=== PATIENT | male | born 1950 | race Caucasian/White ===

== ENCOUNTER → 2017-08-17 10:02 | Outpatient (CLI) | payer MEDICARE, MEDICAID, SELFPAY ==
[2017-08-17 10:47] LABS: Hematocrit 41.3 % (41-53); Hemoglobin 13.4 g/dL (13.5-17.5); Mean Corpuscular HGB Conc 32.5 % (30-36); Mean Corpuscular Hemoglobin 30.1 PG (26-34); Mean Corpuscular Volume 92.7 fL (80-100); Platelet Count 243 X10^3/uL (150-400); Red Blood Cell Count 4.46 X10^6/uL (4.5-5.9); Red Cell Distribution Width 13.6 % (11.6-14.8)
[2017-08-17 10:59] LABS: Add Manual Diff / Slide Review YES; White Blood Cell Count 204.3 X10^3/uL (4.5-11.0)
[2017-08-17 11:00] LABS: Alanine Aminotransferase 23 IU/L (21-72); Albumin 4.1 g/dL (3.5-5.0); Albumin Globulin Ratio 1.5 (1.0-2.8); Alkaline Phosphatase 74 U/L (38-126); Aspartate Aminotransferase 15 IU/L (17-59); BUN Creatinine Ratio 18.9 (6-22); Bilirubin Total 0.6 mg/dL (0.2-1.3); Blood Urea Nitrogen 17 mg/dL (9-20); Calcium 9.5 mg/dL (8.4-10.2); Carbon Dioxide 28 mmol/L (22-32); Chloride 103 mmol/L (98-107); Estimated Glomerular Filt Rate > 60.0 mL/min (>60); Globulin 2.8 g/dL (1.7-4.1); Glucose 103 mg/dL (80-110); HEMOLYSIS < 15 (0-50); Potassium 4.1 mmol/L (3.4-5.1); Sodium 143 mmol/L (137-145); Total Protein 6.9 g/dL (6.3-8.2); Uric Acid 4.2 mg/dL (3.5-8.5)
[2017-08-17 11:10] LABS: Neutrophils Absolute Manual 4086 /uL (3000-5900); RBC Morphology Normal Morphology; Smudge Cells 2+; Total Cells Counted 100
== END ==
PROVIDERS: PCP Internal Medicine; Visit Provider Internal Medicine Hematology & Oncology
DX: C91.10 Chronic lymphocytic leukemia of B-cell type not having achieved remission (principal)
CPT/HCPCS: 36415; 80053; 84550; 85025

== ENCOUNTER 2017-08-25 15:39 | Inpatient (IN) | payer MEDICARE, MEDICAID, SELFPAY ==
[2017-08-25 15:49] VITALS: TEMP 37.1; BMI 24.3
--- NOTE | 2017-08-25 15:54 | ED_ITS ---
HPI - Chest Pain General Chief Complaint: Chest Pain Stated Complaint: LIGHTHEADED,CHEST PAIN,PAIN BACK OF HEAD Time Seen by Provider: 08/25/17 15:54 Source: patient Mode of arrival: ambulatory Limitations: no limitations History of Present Illness HPI narrative: Patient is a 66-year-old male currently under treatment by Dr. Londono (oncology) for CLL. Patient started week 3. Of 420 mg Ibrutinib. For treatment of this. Patient states that he did not take his medicine today. Patient states that off and on since he started this medication he has had retrosternal chest pressure. Not worse with breathing not worse with palpation not worse with movement. States he had a normal stress test 2 years ago. Had a discussion with the patient's oncologist prior to his arrival after the patient called his oncologist office asking when he I did do about the chest pain. His oncologist told me that this medication has known to cause AFib and increasing bleeding risk and potentially could increase coronary artery disease however this is questionable. Also informed me that the patient's white blood cell count would be elevated because this medication does cause a leukocytosis and also his history of CLL. Patient denies taking any medicine prior to arrival here in the emergency department. Related Data Home Medications Medication Instructions Recorded Confirmed aspirin 81 mg PO BEDTIME 07/06/17 08/25/17 allopurinol 300 mg PO BEDTIME 08/25/17 08/25/17 ibrutinib [Imbruvica] 420 mg PO BEDTIME 08/25/17 08/25/17 omeprazole 20 mg PO BEDTIME 08/25/17 08/25/17 Allergies Allergy/AdvReac Type Severity Reaction Status Date / Time Penicillins Allergy Unknown POSSIBLE Verified 08/25/17 15:56 REACTION, NEVER CONFIRMED apremilast [From Otezla] Allergy Verified 08/25/17 15:55 Review of Systems Constitutional Denies chills, Denies fever(s), Denies lethargy and Denies weakness Eyes Denies loss of vision ENT Ears, Nose, Mouth, and Throat: Denies dizziness Cardiovascular Reports chest pain, Reports chest pain at rest, Denies diaphoresis, Denies syncope, Denies rapid heart rate, Denies pedal edema, Denies edema, Denies palpitations and Denies dyspnea Respiratory Denies chest congestion, Denies dyspnea and Denies wheezing Gastrointestinal Gastrointestinal: Denies constipation, Denies diarrhea, Denies nausea and Denies vomiting Genitourinary Denies dysuria Integumentary/Breasts Denies pruritus, Denies erythema, Denies rash and Denies wounds Neurologic Denies dizziness, Denies syncope, Denies focal weakness, Denies loss of vision and Denies weakness Endocrine Denies palpitations Hematologic/Lymphatic Comments: Patient without history of easy bleeding however the medication is on can cause bleeding issues Allergic/Immunologic Denies wheezing PFSH Surgical History Status post hernia repair (11/10/10) Status post hernia repair Status post hernia repair Social History Smoking Status: Former smoker Exam Initial Vital Signs Initial Vital Signs: Vital Signs Temperature 98.8 F 08/25/17 15:49 Const General: cooperative, healthy appearing, comfortable, well developed and well groomed Nutritional Appearance: average body habitus Orientation: alert, awake and oriented x3 HENMT Head: normal to inspection, normocephalic and atraumatic Chest Chest: normal inspection of the chest, No crepitus and No tenderness Resp Effort & Inspection: normal respiratory effort Auscultation: clear to auscultation bilaterally, no rales, no rhonchi and no wheezes Cardio Rate: bradycardic Rhythm: regular rhythm Pulses: radial pulses present GI Inspection: no edema and non-distended Palpation: soft, No firm and No guarding Back/Spine/Pelvis Back: No CVA tenderness Skin General: no rashes or lesions noted, No jaundice and No petechiae Neuro General: alert, awake and oriented x3 Cognition: normal cognition Speech: speech normal Gait: normal gait Extrem General: normal to inspection and capillary refill normal Course Orders Ordered: ED Orders 08/25/17 15:55 XR chest 1V Stat 08/25/17 15:58 EKG-12 Lead Stat 08/25/17 16:02 B Type Natriuretic Peptide Stat Basic Metabolic Panel Stat Complete Blood Count AUTO DIFF Stat Partial Thromboplastin Time Stat Prothrombin Time INR Stat Troponin I Stat Discontinued Medications Aspirin (Aspirin Chew) 324 mg PO NOW ONE Stop: 08/25/17 18:06 Vital Signs - 8 hr 08/25/17 15:49 08/25/17 16:06 08/25/17 17:00 Temperature 98.8 F Pulse Rate 51 L 50 L Respiratory Rate 21 12 Blood Pressure [Right Arm] 122/62 H 115/66 Pulse Oximetry 95 94 MDM - Chest Pain Lab Data Attestation: I reviewed the patient's lab results. Result diagrams: 08/25/17 16:02 08/25/17 16:02 Lab Results 08/25/17 08/25/17 08/25/17 Range/Units 16:02 16:02 16:02 WBC 236.0 H* (4.5-11.0) X10^3/uL RBC 4.27 L (4.5-5.9) X10^6/uL Hgb 12.9 L (13.5-17.5) g/dL Hct 39.1 L (41-53) % MCV 91.5 (80-100) fL MCH 30.2 (26-34) PG MCHC 33.0 (30-36) % RDW 13.5 (11.6-14.8) % Plt Count 271 (150-400) X10^3/uL Neut % (Auto) Not Reportable Lymph % (Auto) Not Reportable [place] % (Auto) Not Reportable Eos % (Auto) Not Reportable Baso % (Auto) Not Reportable Total Counted 100 Seg Neutrophils % 1.0 L (38-70) % Lymphocytes % (Manual) 99.0 H (25-45) % Neutrophils # (Manual) 2360 L (3690-8663) /uL RBC Morphology Normal morphology PT 11.2 (10.1-12.7) SECONDS INR 1.0 (0.9-1.3) APTT 31 (26.4-36.2) SECONDS Sodium 141 (137-145) mmol/L Potassium 4.0 (3.4-5.1) mmol/L Chloride 106 (98-107) mmol/L Carbon Dioxide 26 (22-32) mmol/L BUN 16 (9-20) mg/dL Creatinine 0.90 (0.66-1.25) mg/dL Estimated GFR > 60.0 (>60) mL/min BUN/Creatinine Ratio 17.8 (6-22) Glucose 90 (80-110) mg/dL Calcium 9.0 (8.4-10.2) mg/dL Troponin I < 0.012 (0.01-0.034) ng/mL B-Natriuretic Peptide < 100.0 (<100) Imaging Data Chest x-ray: Radiologist's impression: PROCEDURE: XR CHEST 1V INDICATIONS: Chest pain TECHNIQUE: One view of the chest was acquired. COMPARISON: [facility], CHEST 2 VIEW, 09/22/2014, 8:15. FINDINGS: Surgical changes and devices: None. Lungs and pleura: No pleural effusions or pneumothorax. No focal infiltrate. Mild, diffuse interstitial prominence compared to prior studies. No septal lines. Mediastinum: Mediastinal contours appear normal. Heart size is normal. Bones and chest wall: No suspicious bony lesions. Overlying soft tissues appear unremarkable. IMPRESSION: 1. No focal consolidation to suggest typical pneumonia. Possibility of atypical or viral pneumonitis cannot be excluded. Dictated by: Alberto Tamez M.D. on 08/25/2017 at 16:18 ECG Data Attestation: I personally reviewed and interpreted this ECG as follows: Prior ECG tracings: not available for review Interpretation: Sinus bradycardia Ventricular rate of 47 Normal axis Normal intervals Normal QRS Normal QTC No ST T wave changes MDM Narrative Medical decision making narrative: Patient was having chest pain off and on while here in the emergency department. Unable to obtain an EKG while he was having the symptoms. He does have an elevated white blood cell count or this is consistent with his medication and also his history of CLL. Patient was given an aspirin here in the ER. Had a nonischemic EKG. Difficult to risk stratify a patient with heart score secondary to his history of CLL and also the medication he is on which there is some concern according to his oncologist can increase the risk of coronary artery disease. Patient is not in AFib which is another side effect of this medication. Had a long discussion with the patient his regarding his symptoms and his risk factors. We had discussions about staying here in the emergency department to get a delta troponin versus being admitted to the hospital. We did discuss risks benefits of each of these. After this discussion the patient decided that he would like to be admitted to the hospital for further provocative testing. I discussed the case with Dr. Brower who will admit the patient under observation for continued workup. Discharge Plan Departure Patient Disposition: Admitted as Observation Clinical Impression: Chest pain, CLL (chronic lymphocytic leukemia)
[2017-08-25 16:06] VITALS: BP 122/62; PULSE 51; RESP 21; O2SAT 95
[2017-08-25 16:23] LABS: Prothrombin Time 11.2 SECONDS (10.1-12.7)
[2017-08-25 16:25] LABS: Hematocrit 39.1 % (41-53); Hemoglobin 12.9 g/dL (13.5-17.5); Mean Corpuscular Hemoglobin 30.2 PG (26-34); Mean Corpuscular Volume 91.5 fL (80-100); Platelet Count 271 X10^3/uL (150-400); Red Blood Cell Count 4.27 X10^6/uL (4.5-5.9); Red Cell Distribution Width 13.5 % (11.6-14.8)
[2017-08-25 16:26] LABS: PTT Partial Thromboplastin Tim 31 SECONDS (26.4-36.2)
[2017-08-25 16:27] LABS: BUN Creatinine Ratio 17.8 (6-22); Blood Urea Nitrogen 16 mg/dL (9-20); Carbon Dioxide 26 mmol/L (22-32); Chloride 106 mmol/L (98-107); Estimated Glomerular Filt Rate > 60.0 mL/min (>60); Glucose 90 mg/dL (80-110); HEMOLYSIS < 15 (0-50); Sodium 141 mmol/L (137-145)
[2017-08-25 16:30] LABS: Add Manual Diff / Slide Review YES
[2017-08-25 16:39] LABS: Troponin I < 0.012 ng/mL (0.01-0.034)
[2017-08-25 16:41] LABS: B Type Natriuretic Peptide < 100.0 (<100)
[2017-08-25 16:54] LABS: Neutrophils Absolute Manual 2360 /uL (3000-5900); RBC Morphology Normal Morphology; Total Cells Counted 100
[2017-08-25 17:00] VITALS: BP 115/66; PULSE 50; RESP 12; O2SAT 94
--- NOTE | 2017-08-25 18:46 | PC.NURSE ---
Pt report extensive pain with IV. asked for a new one to be started and the one in the lac removed
[2017-08-25 19:10] VITALS: BP 131/71; PULSE 61; RESP 12; O2SAT 94
[2017-08-25] MEDS: ASPIRIN 81 MG TAB 324 MG PO (19:16)
[2017-08-25 19:27] VITALS: BMI 24.3
[2017-08-25 19:35] VITALS: BP 124/80; PULSE 62; RESP 18; TEMP 36.1; O2SAT 93
--- NOTE | 2017-08-25 21:50 | PM.HP.1 ---
History of Present Illness Date Patient Seen: 08/25/17 Time Patient Seen: 21:50 Chief complaint: LIGHTHEADED,CHEST PAIN,PAIN BACK OF HEAD Narrative: He presents with a constellation of symptoms of some pain in the chest that has been not exertional span, random the past week and a half. He has had some lightheadedness some pain also in the back of his head so some unrelated symptoms and seems like. He has been on a new medication for his CLL for about 3 weeks he thinks that symptoms might be part of this new medication. He has not had appears history of heart problems he had a stress test about 3 years ago while in [place] and was unremarkable. There is a family history of coronary disease and he has hyperlipidemia that has been untreated Patient History Medical History CLL (chronic lymphocytic leukemia) (Acute) GERD (gastroesophageal reflux disease) (Acute) Hyperlipidemia (Acute) Psoriatic arthritis (Acute) Sleep apnea in adult (Acute) Surgical History Status post hernia repair (11/10/10) Status post hernia repair Status post hernia repair Family & Social History Tobacco & Substance use: Smoking Status Former smoker alcohol intake frequency other Substance Use Type does not use Meds Home Medications Medication Instructions Recorded Confirmed Type aspirin 81 mg PO BEDTIME 07/06/17 08/25/17 History allopurinol 300 mg PO BEDTIME 08/25/17 08/25/17 History ibrutinib [Imbruvica] 420 mg PO BEDTIME 08/25/17 08/25/17 History omeprazole 20 mg PO BEDTIME 08/25/17 08/25/17 History Allergies Allergy/AdvReac Type Severity Reaction Status Date / Time Penicillins Allergy Unknown POSSIBLE Verified 08/25/17 15:56 REACTION, NEVER CONFIRMED apremilast [From Otezla] Allergy Verified 08/25/17 15:55 Review of Systems Review of Systems All systems reviewed & are unremarkable except as noted in HPI and below Exam Vital Signs (past 8 hours): Vital Signs - 8 hr 08/25/17 15:49 08/25/17 16:06 08/25/17 17:00 Temperature 98.8 F Pulse Rate 51 L 50 L Respiratory Rate 21 12 Blood Pressure Blood Pressure [Right Arm] 122/62 H 115/66 Pulse Oximetry 95 94 08/25/17 19:10 08/25/17 19:35 Temperature 96.9 F L Pulse Rate 61 62 Respiratory Rate 12 18 Blood Pressure 124/80 H Blood Pressure [Right Arm] 131/71 H Pulse Oximetry 94 93 Pulse Oximetry 93 Oxygen Delivery Method Room Air Narrative Exam Narrative: Pleasant male no acute distress HEENT exam unremarkable neck is supple no bruit noted no JVD Lungs Clear to auscultation Heart regular rhythm no murmur Abdomen mildly protuberant without any masses bowel sounds are present Lower extremities trace edema Skin warm and dry Neuro exam awake alert no focal deficits Objective Labs Result Diagrams: 08/25/17 16:02 08/25/17 16:02 Labs: Laboratory Results - last 24 hr 08/25/17 08/25/17 08/25/17 16:02 16:02 16:02 WBC 236.0 H* RBC 4.27 L Hgb 12.9 L Hct 39.1 L MCV 91.5 MCH 30.2 MCHC 33.0 RDW 13.5 Plt Count 271 Neut % (Auto) Not Reportable Lymph % (Auto) Not Reportable [place] % (Auto) Not Reportable Eos % (Auto) Not Reportable Baso % (Auto) Not Reportable Total Counted 100 Seg Neutrophils % 1.0 L Lymphocytes % (Manual) 99.0 H Neutrophils # (Manual) 2360 L RBC Morphology Normal morphology PT 11.2 INR 1.0 APTT 31 Sodium 141 Potassium 4.0 Chloride 106 Carbon Dioxide 26 BUN 16 Creatinine 0.90 Estimated GFR > 60.0 BUN/Creatinine Ratio 17.8 Glucose 90 Calcium 9.0 Troponin I < 0.012 B-Natriuretic Peptide < 100.0 Assessment & Plan Plan: Assessment/Plan Narrative: Chest pain atypical presentation with some risk factors family history and hyperlipidemia and the patient. Serial troponin will be checked of he will be placed on telemetry. His high white count possibly could be causing some hyperviscosity which could lead to some ischemia. EKG without any acute changes however. Probably should have a stress test of some type if he rules out. 2. CLL management as per Hematology.
[2017-08-25 23:11] LABS: Troponin I < 0.012 ng/mL (0.01-0.034)
[2017-08-25 23:42] VITALS: BP 105/48; PULSE 50; RESP 16; TEMP 36.6; O2SAT 92
[2017-08-26 00:15] VITALS: O2SAT 92
[2017-08-26 05:41] VITALS: BP 108/58; PULSE 45; RESP 16; TEMP 36.5; O2SAT 94
[2017-08-26 06:34] LABS: Troponin I < 0.012 ng/mL (0.01-0.034)
--- NOTE | 2017-08-26 06:39 | PC.NURSE ---
pt was comfortable last night. denied chest pain or light headedness. pt independent in his room. call light in reach bed alarm active.
[2017-08-26 07:50] VITALS: O2SAT 96
[2017-08-26 07:59] VITALS: PULSE 48; RESP 14; TEMP 36.6; O2SAT 93
[2017-08-26 12:06] VITALS: BP 111/71; PULSE 53; RESP 12; TEMP 36.2
--- NOTE | 2017-08-26 14:28 | PM.DS.1 ---
History of Present Illness Chief complaint: LIGHTHEADED,CHEST PAIN,PAIN BACK OF HEAD Narrative: 66 yo man presents with a constellation of symptoms of some pain in the chest that has been not exertional span, random the past week and a half. He has had some lightheadedness some pain also in the back of his head so some unrelated symptoms and seems like. He has been on a new medication for his CLL for about 3 weeks he thinks that symptoms might be part of this new medication. He has not had appears history of heart problems he had a stress test about 3 years ago while in [place] and was unremarkable. There is a family history of coronary disease and he has hyperlipidemia that has been untreated Discharge Providers Date of admission: 08/25/17 18:55 Primary care physician: Constantino Sanders MD Discharge provider: Thais Massey MD Discharge Date: 08/26/17 Summary Discharge Diagnosis: 1. Atypical chest pain 2. CLL Hospital Course: 1. Atypical chest pain: Patient was ruled out for [place] with 3-troponins. His EKG did not show acute ST-T changes. We have tried to do treadmill nuclear medicine stress test. Patient was not able to reach the goal heart rate of 130 after 9 min of treadmill exercise. He did not have chest pain. EKG did not show acute ST-T changes. Due to he had coffee in the morning with his breakfast, the test was not able to be converted to Lexiscan. We will try to set him up for outpatient walking Lexiscan to further evaluate for possible cardiac ischemia. 2. He is followed by Hematology. Exam Vital Signs (past 8 hours): Vital Signs - 8 hr 08/26/17 07:50 08/26/17 07:59 08/26/17 12:06 Temperature 97.8 F 97.2 F L Pulse Rate 48 L 53 L Respiratory Rate 14 12 Blood Pressure 111/71 Pulse Oximetry 96 93 Pulse Oximetry 93 Oxygen Delivery Method Room Air Objective Imaging Chest x-ray: Radiologist's impression: No focal consolidation to suggest typical pneumonia. Possibility of atypical or viral pneumonitis cannot be excluded. ECG: Sinus rhythm Labs Result Diagrams: 08/25/17 16:02 08/25/17 16:02 Labs: Laboratory Results - last 24 hr 08/25/17 08/25/17 08/25/17 16:02 16:02 16:02 WBC 236.0 H* RBC 4.27 L Hgb 12.9 L Hct 39.1 L MCV 91.5 MCH 30.2 MCHC 33.0 RDW 13.5 Plt Count 271 Neut % (Auto) Not Reportable Lymph % (Auto) Not Reportable [place] % (Auto) Not Reportable Eos % (Auto) Not Reportable Baso % (Auto) Not Reportable Total Counted 100 Seg Neutrophils % 1.0 L Lymphocytes % (Manual) 99.0 H Neutrophils # (Manual) 2360 L RBC Morphology Normal morphology PT 11.2 INR 1.0 APTT 31 Sodium 141 Potassium 4.0 Chloride 106 Carbon Dioxide 26 BUN 16 Creatinine 0.90 Estimated GFR > 60.0 BUN/Creatinine Ratio 17.8 Glucose 90 Calcium 9.0 Troponin I < 0.012 B-Natriuretic Peptide < 100.0 08/25/17 08/26/17 22:33 05:35 WBC RBC Hgb Hct MCV MCH MCHC RDW Plt Count Neut % (Auto) Lymph % (Auto) [place] % (Auto) Eos % (Auto) Baso % (Auto) Total Counted Seg Neutrophils % Lymphocytes % (Manual) Neutrophils # (Manual) RBC Morphology PT INR APTT Sodium Potassium Chloride Carbon Dioxide BUN Creatinine Estimated GFR BUN/Creatinine Ratio Glucose Calcium Troponin I < 0.012 < 0.012 B-Natriuretic Peptide Discharge Plan Discharge Plan Discharge Problem: Chest pain, CLL (chronic lymphocytic leukemia) Patient Disposition: Home, Self-Care Discharge comment: Schedule outpatient Lexiscan in the near future Provider Discharge Instructions Diet: Low-fat Activity: as tolerated Discharge Data Primary Care Provider: Constantino Sanders V Attending Provider: Geremias Brower Admit Date/Time: 08/25/17 18:55 Quality VTE Deep Vein Thrombosis/Pulmonary Embolism Present on Admission: No
--- NOTE | 2017-08-26 14:33 | P.DS_ITS ---
History of Present Illness Chief complaint: LIGHTHEADED,CHEST PAIN,PAIN BACK OF HEAD Narrative: 66 yo man presents with a constellation of symptoms of some pain in the chest that has been not exertional span, random the past week and a half. He has had some lightheadedness some pain also in the back of his head so some unrelated symptoms and seems like. He has been on a new medication for his CLL for about 3 weeks he thinks that symptoms might be part of this new medication. He has not had appears history of heart problems he had a stress test about 3 years ago while in [place] and was unremarkable. There is a family history of coronary disease and he has hyperlipidemia that has been untreated Discharge Providers Date of admission: 08/25/17 18:55 Primary care physician: Constantino Sanders MD Discharge provider: Thais Massey MD Discharge Date: 08/26/17 Summary Discharge Diagnosis: 1. Atypical chest pain 2. CLL Hospital Course: 1. Atypical chest pain: Patient was ruled out for [place] with 3- troponins. His EKG did not show acute ST-T changes. We have tried to do treadmill nuclear medicine stress test. Patient was not able to reach the goal heart rate of 130 after 9 min of treadmill exercise. He did not have chest pain. EKG did not show acute ST-T changes. Due to he had coffee in the morning with his breakfast, the test was not able to be converted to Lexiscan. We will try to set him up for outpatient walking Lexiscan to further evaluate for possible cardiac ischemia. 2. He is followed by Hematology. Exam Vital Signs (past 8 hours): Vital Signs - 8 hr 3 08/26/17 07:50 08/26/17 07:59 08/26/17 12:06 Temperature 97.8 F 97.2 F L Pulse Rate 48 L 53 L Respiratory Rate 14 12 Blood Pressure 111/71 Pulse Oximetry 96 93 Pulse Oximetry 93 Oxygen Delivery Method Room Air Objective Imaging Chest x-ray: Radiologist's impression: No focal consolidation to suggest typical pneumonia. Possibility of atypical or viral pneumonitis cannot be excluded. ECG: Sinus rhythm Labs Result Diagrams: 08/25/17 16:02 08/25/17 16:02 Labs: Laboratory Results - last 24 hr 08/25/17 08/25/17 08/25/17 16:02 16:02 16:02 WBC 236.0 H* RBC 4.27 L Hgb 12.9 L Hct 39.1 L MCV 91.5 MCH 30.2 MCHC 33.0 RDW 13.5 Plt Count 271 Neut % (Auto) Not Reportable Lymph % (Auto) Not Reportable [place] % (Auto) Not Reportable Eos % (Auto) Not Reportable Baso % (Auto) Not Reportable Total Counted 100 Seg Neutrophils % 1.0 L Lymphocytes % (Manual) 99.0 H Neutrophils # (Manual) 2360 L RBC Morphology Normal morphology PT 11.2 INR 1.0 APTT 31 Sodium 141 Potassium 4.0 Chloride 106 Carbon Dioxide 26 BUN 16 Creatinine 0.90 Estimated GFR > 60.0 BUN/Creatinine Ratio 17.8 Glucose 90 Calcium 9.0 Troponin I < 0.012 B-Natriuretic Peptide < 100.0 08/25/17 08/26/17 22:33 05:35 WBC RBC Hgb Hct MCV MCH MCHC RDW Plt Count Neut % (Auto) Lymph % (Auto) [place] % (Auto) Eos % (Auto) Baso % (Auto) Total Counted Seg Neutrophils % Lymphocytes % (Manual) Neutrophils # (Manual) RBC Morphology PT INR APTT Sodium Potassium Chloride Carbon Dioxide BUN Creatinine Estimated GFR BUN/Creatinine Ratio Glucose Calcium Troponin I < 0.012 < 0.012 B-Natriuretic Peptide Discharge Plan Discharge Plan Discharge Problem: Chest pain, CLL (chronic lymphocytic leukemia) Patient Disposition: Home, Self-Care Discharge comment: Schedule outpatient Lexiscan in the near future Provider Discharge Instructions Diet: Low-fat Activity: as tolerated Discharge Data Primary Care Provider: Constantino Sanders V Attending Provider: Geremias Brower Admit Date/Time: 08/25/17 18:55 Quality VTE Deep Vein Thrombosis/Pulmonary Embolism Present on Admission: No
[2017-08-26 15:52] VITALS: BP 159/105; PULSE 90; RESP 20; TEMP 36.7
== END 2017-08-26 16:17 | disposition home or self-care (01) | DRG 313 ==
LOC: ED 18:11 → AC 18:55
PROVIDERS: Admitting Provider Internal Medicine; Emergency Provider Emergency Medicine; PCP Internal Medicine; Visit Provider Internal Medicine
DX: R07.89 Other chest pain (principal); C91.10 Chronic lymphocytic leukemia of B-cell type not having achieved remission; K21.9 Gastro-esophageal reflux disease without esophagitis
CPT/HCPCS: 36415; 36591; 71045; 80048; 83880; 84484; 85025; 85610; 85730; 93005; 93010; 99282; 99285

== ENCOUNTER → 2017-09-03 12:29 | Outpatient (CLI) | payer MEDICARE, MEDICAID, SELFPAY ==
[2017-08-25 19:27] VITALS: BMI 24.3
--- NOTE | 2017-09-06 17:16 | DI.NM.S_ITS ---
DATE OF SERVICE: 09/03/2017 PROCEDURE PERFORMED: Exercise treadmill converted to pharmacologic vasodilator stress and rest myocardial perfusion imaging study with gating to assess ejection fraction and regional wall motion. ORDERING PROVIDER: Constantino Sanders MD INDICATIONS: The patient is a 66-year-old male with chest discomfort. CARDIAC STRESS: The patient was initially exercised on the treadmill and was able to complete 5 minutes of a standard Lee protocol but with an inadequate heart rate response and therefore was converted to a pharmacologic regadenoson study by injection of 0.4 mg of regadenoson at 4 minutes 45 seconds. With this, he had a normal hemodynamic response and had no angina with either stress. His resting ECG was normal, and there were no ischemic changes or arrhythmias. Per protocol, 25.2 mCi of technetium-99 Myoview IV was injected and the patient was imaged 15 minutes later using a gated SPECT acquisition protocol. He returned 3 days later and was reinjected with an additional 25.1 of mCi technetium-99 Myoview and was imaged 30 minutes later, again using a gated SPECT acquisition protocol. FINDINGS: 1. RAW DATA: There was fair myocardial tracer uptake with some suggestion of diaphragmatic attenuation across the inferior wall. The lung/heart ratio is normal at 0.38 with a normal TID ratio of 0.85. 2. QUANTITATIVE GATED SPECT: Post-stress ejection fraction is estimated at 76% without any focal wall motion abnormality, and specifically, the inferior wall has normal, brisk contractility. Resting ejection fraction is 71% with a resting end-diastolic volume of 112 mL. 3. MYOCARDIAL PERFUSION IMAGING: Post-stress supine images show mildly reduced tracer activity in the proximal inferior wall extending somewhat into the mid-to - distal inferolateral wall in a location that would be consistent with diaphragmatic attenuation, supported by its complete resolution on the prone images revealing a normal perfusion pattern. The resting images show a similar perfusion pattern, perhaps with some slight improvement in the mid portion of the inferior wall, but overall there does not appear to be a significant change from the post stress supine images. IMPRESSION: 1. Probable normal myocardial perfusion study. 2. Mild, fixed [id number] inferior and inferolateral perfusion defect that completely resolves on prone imaging, most consistent with diaphragmatic attenuation. There is no compelling evidence for significant myocardial ischemia or infarction. 3. Normal left ventricular systolic function without any focal wall motion abnormality. Specifically, the inferior and inferolateral wall have normal contractility. 4. No angina or ECG evidence of ischemia with exercise augmented by vasodilator stress although with a somewhat blunted heart rate response to exercise. No arrhythmias. 5. The previous stress study report from 03/29/2016 which suggests a very similar description of an inferior defect that resolved on the prone images and was felt to be artifact. Floyd Trevino - YVONNE/eulalia/ doc#: [id number]/job#: [id number] dd: 09/06/2017 12:51:00 dt: 09/06/2017 16:53:00 DICTATING MD/COPIES TO: Edwin Dhaliwal MD; Constantino Sanders MD; Lupillo Londono MD COPIES MNE: JAYESH GONZÁLES; ALESSANDRA
== END ==
PROVIDERS: PCP Internal Medicine; Visit Provider Internal Medicine
DX: R07.89 Other chest pain (principal)
CPT/HCPCS: 78452; 93016; 93017; 93018; A9502; J2785

== ENCOUNTER → 2017-09-20 10:48 | Outpatient (CLI) | payer MEDICARE, MEDICAID, SELFPAY ==
[2017-08-25 19:27] VITALS: BMI 24.3
[2017-09-20 12:40] LABS: Hematocrit 41.4 % (41-53); Hemoglobin 13.9 g/dL (13.5-17.5); Mean Corpuscular HGB Conc 33.5 % (30-36); Mean Corpuscular Hemoglobin 30.9 PG (26-34); Mean Corpuscular Volume 92.1 fL (80-100); Platelet Count 237 X10^3/uL (150-400); Red Blood Cell Count 4.49 X10^6/uL (4.5-5.9); Red Cell Distribution Width 14.3 % (11.6-14.8)
[2017-09-20 12:42] LABS: Add Manual Diff / Slide Review YES; White Blood Cell Count 161.2 X10^3/uL (4.5-11.0)
[2017-09-20 12:59] LABS: Neutrophils Absolute Manual 6448 /uL (3000-5900); RBC Morphology Normal Morphology; Smudge Cells 2+; Total Cells Counted 100
[2017-09-20 13:01] LABS: Alanine Aminotransferase 36 IU/L (21-72); Albumin 4.5 g/dL (3.5-5.0); Albumin Globulin Ratio 1.6 (1.0-2.8); Alkaline Phosphatase 75 U/L (38-126); Aspartate Aminotransferase 24 IU/L (17-59); BUN Creatinine Ratio 14.5 (6-22); Bilirubin Total 0.7 mg/dL (0.2-1.3); Blood Urea Nitrogen 16 mg/dL (9-20); C-Reactive Protein Quant 0.9 mg/dL (<1.0); Calcium 9.2 mg/dL (8.4-10.2); Carbon Dioxide 29 mmol/L (22-32); Chloride 103 mmol/L (98-107); Estimated Glomerular Filt Rate > 60.0 mL/min (>60); Globulin 2.9 g/dL (1.7-4.1); Glucose 78 mg/dL (80-110); HEMOLYSIS < 15 (0-50); Potassium 3.9 mmol/L (3.4-5.1); Sodium 143 mmol/L (137-145); Total Protein 7.4 g/dL (6.3-8.2)
[2017-09-20 13:07] LABS: Erythrocyte Sedimentation Rate 4 MM/HR (0-15)
[2017-09-20 13:40] LABS: Thyroid Stimulating Hormone 1.91 uIU/mL (0.47-4.68)
--- NOTE | 2017-09-20 14:44 | PC.NURSE ---
Lab called with critical WBC 161.2. Pt has not been seen here recently last note states he was seeking treatment at [facility].Called lab to have them inform Dr Sanders who orderd CBC. (Note ; WBC improved from last value in the 200's)
== END ==
PROVIDERS: PCP Internal Medicine; Visit Provider Internal Medicine
DX: C91.10 Chronic lymphocytic leukemia of B-cell type not having achieved remission (principal); R51 Headache; I95.1 Orthostatic hypotension
CPT/HCPCS: 36415; 80053; 84443; 85025; 85651; 86140

== ENCOUNTER → 2017-09-23 12:37 | Outpatient (CLI) | payer MEDICARE, MEDICAID, SELFPAY ==
[2017-08-25 19:27] VITALS: BMI 24.3
--- NOTE | 2017-09-23 | DI.MRI.S_ITS ---
PROCEDURE: MR HEAD/BRAIN WO/W CON INDICATIONS: CHRONIC LUKEMIA AND HEADACHES TECHNIQUE: Noncontrast axial T1 spin echo, axial T2 fast spin echo, sagittal and axial FLAIR, coronal T2 fast spin echo, axial gradient echo, axial diffusion and ADC through the brain. After the administration of contrast, axial and coronal T1 spin echo with fat saturation through the brain. COMPARISON: None. FINDINGS: Image quality: Excellent. CSF spaces: Basal cisterns are patent. No extra-axial fluid collections. Ventricles are normal in size and shape. Brain: No midline shift. No intracranial bleeds or masses. No abnormal intracranial enhancement. There is cerebral volume loss for age. There is minimal periventricular white matter chronic small vessel ischemic change. The brainstem appears normal. Diffusion-weighted images demonstrate no acute ischemic insults. No chronic ischemic insults. Normal intravascular flow voids are present. Skull and face: Calvarial marrow is normal in signal. Orbits appear normal. Sinuses: Sinuses and mastoids appear clear. IMPRESSION: 1. Mild volume loss and minimal small vessel ischemic disease. 2. No recent infarct. 3. No evidence of malignancy. Dictated by: Lul Ireland M.D. on 09/23/2017 at 15:39 Approved by: Lul Ireland M.D. on 09/23/2017 at 15:41
== END ==
PROVIDERS: Family Provider Internal Medicine Cardiovascular Disease; PCP Internal Medicine; Referring Provider Internal Medicine Hematology & Oncology; Visit Provider Internal Medicine
DX: C95.90 Leukemia, unspecified not having achieved remission (principal); R51 Headache
CPT/HCPCS: 70553

== ENCOUNTER → 2018-07-15 12:39 | Outpatient (CLI) | payer MEDICARE, MEDICAID, SELFPAY ==
[2018-07-15 13:53] LABS: Blood Urea Nitrogen 16 mg/dL (9-20); Calcium 9.3 mg/dL (8.4-10.2); Carbon Dioxide 27 mmol/L (22-32); Chloride 101 mmol/L (98-107); Estimated Glomerular Filt Rate > 60.0 mL/min (>60); Glucose 83 mg/dL (80-110); HEMOLYSIS < 15 (0-50); Potassium 3.9 mmol/L (3.4-5.1); Sodium 138 mmol/L (137-145)
== END ==
PROVIDERS: PCP Internal Medicine; Visit Provider Internal Medicine
DX: I10 Essential (primary) hypertension (principal)
CPT/HCPCS: 36415; 80048

== ENCOUNTER 2018-11-21 16:53 | Emergency (ER) | payer MEDICARE, MEDICAID, SELFPAY ==
[2018-11-21 17:00] VITALS: BP 125/73; PULSE 85; RESP 18; TEMP 36.4; O2SAT 95; BMI 24.9
[2018-11-21 19:30] VITALS: BP 118/70; PULSE 70; RESP 16; O2SAT 98
[2018-11-21 20:10] VITALS: BP 145/86; PULSE 78; RESP 19; O2SAT 96
--- NOTE | 2018-11-21 20:25 | ED_ITS ---
HPI - Male Genitourinary General Chief complaint: Urogenital-Male Stated complaint: PROBLEM WITH LEFT TESTICAL Time Seen by Provider: 11/21/18 17:42 Source: patient and family Mode of arrival: ambulatory Limitations: no limitations History of Present Illness HPI Narrative: Patient comes emergency department complaining of left-sided testicular pain since this morning. Patient states he also a soft lump just above his testicle, as well. patient denies any abdominal pain. He denies any dysuria or penile discharge. He has a history of psoriasis, and has a couple of chronic psoriatic lesions on his glans penis. 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 Patient denies any fevers or chills. He has a distant history of a possible torsion as a teenager, and has 3 inguinal hernia repairs involving both sides. No other complaints at this time. Related Data Home Medications Medication Instructions Recorded Confirmed aspirin 81 mg PO BEDTIME 07/06/17 08/25/17 allopurinol 300 mg PO BEDTIME 08/25/17 08/25/17 ibrutinib 420 mg PO BEDTIME 08/25/17 08/25/17 omeprazole 20 mg PO BEDTIME 08/25/17 08/25/17 Allergies Allergy/AdvReac Type Severity Reaction Status Date / Time Penicillins Allergy Unknown POSSIBLE Verified 08/25/17 15:56 REACTION, NEVER CONFIRMED apremilast [From Otezla] Allergy Verified 08/25/17 15:55 Review of Systems Constitutional Constitutional: Denies chills, Denies fatigue, Denies fever(s), Denies frequent falls, Denies lethargy and Denies weakness Eyes Eyes: Denies change in vision, Denies eye discharge, Denies irritation and Denies loss of vision ENT Ears, Nose, Mouth, and Throat: Denies change in voice, Denies dizziness, Denies neck pain, Denies sore throat and Denies throat swelling Cardiovascular Cardiovascular: Denies chest pain, Denies irregular heart rhythm, Denies lightheadedness, Denies palpitations, Denies dyspnea, Denies dyspnea on exertion and Denies orthopnea Respiratory Respiratory: Denies cough, Denies dyspnea, Denies dyspnea on exertion and Denies wheezing Gastrointestinal Gastrointestinal: Denies abdominal pain, Denies change in bowel habits, Denies diarrhea, Denies nausea and Denies vomiting Genitourinary Genitourinary: Denies hematuria, Denies flank pain, Denies urinary incontinence and Denies urinary urgency Comments: Testicular pain, mass Musculoskeletal Musculoskeletal: Denies back pain, Denies muscle weakness, Denies neck pain, Denies numbness and Denies tingling Integumentary/Breasts Skin/Breast: Denies pruritus, Denies erythema, Denies rash and Denies wounds Neurologic Neurologic: Denies behavioral changes, Denies confusion, Denies dizziness, Denies frequent falls, Denies loss of vision, Denies numbness, Denies tingling and Denies weakness Psychiatric Psychiatric: Denies anxiety, Denies behavioral changes, Denies confusion, Denies depression, Denies homicidal ideation and Denies suicidal ideation Endocrine Endocrine: Denies fatigue, Denies flushing and Denies palpitations Hematologic/Lymphatic Hematologic/Lymphatic: Denies easy bruising Allergic/Immunologic Allergic/Immunologic: Denies urticaria, Denies throat swelling and Denies wheezing [facility] Medical History CLL (chronic lymphocytic leukemia) (Acute) GERD (gastroesophageal reflux disease) (Acute) Hyperlipidemia (Acute) Psoriatic arthritis (Acute) Sleep apnea in adult (Acute) Surgical History Status post hernia repair (11/10/10) Status post hernia repair Status post hernia repair Social History household members: significant other Smoking Status: Former smoker Social History household members: significant other Smoking Status: Former smoker Exam Initial Vital Signs Initial Vital Signs: Vital Signs Temperature 97.6 F 11/21/18 17:00 Pulse Rate 85 11/21/18 17:00 Respiratory Rate 18 11/21/18 17:00 Blood Pressure 125/73 11/21/18 17:00 Pulse Oximetry 95 11/21/18 17:00 Const General: cooperative and well developed Nutritional Appearance: well nourished Orientation: alert, awake, oriented x3 and not confused [facility] Head: normocephalic and atraumatic Ears: external ears normal Nose: external nose normal and No nasal discharge Face and sinus: face symmetric and No dry mucous membranes Mouth: oral mucosae normal and moist mucous membranes Teeth and gingiva: dentition normal Eyes General: appearance normal, both eyes and all related structures Eyelids: eyelids normal Conjunctivae: conjunctivae normal Sclera: sclerae normal Pupils: PERRL EOM: EOM intact bilaterally Neck Neck: normal visual inspection, trachea midline, No lymphadenopathy, No midline deformity and No JVD Lymphatic: No lymphedema Chest Chest: normal inspection of the chest Resp Effort & Inspection: normal respiratory effort, able to speak in complete sentences, no respiratory distress and no use of accessory muscles Auscultation: clear to auscultation bilaterally, no rales, no rhonchi and no wheezes Cardio Rate: regular rate Rhythm: regular rhythm Heart Sounds: no click, no gallops, no murmurs and no rubs Pulses: normal peripheral pulses GI Inspection: non-distended Palpation: soft, no hepatosplenomegaly, No guarding, No pulsatile mass and No tender Auscultation: normal bowel sounds Testes: normal and mass (Soft, approximately 1.5 cm diameter; mobile) on the left Back/Spine/Pelvis Back: No CVA tenderness Cervical Spine: cervical ROM normal and No pain with cervical ROM Thoracic/Lumbar Spine: thoracic and lumbar spine normal to inspection Skin General: no rashes or lesions noted, No jaundice and No petechiae Neuro General: alert, oriented x3, gait normal and no focal motor deficits Speech: speech normal Extrem General: full ROM, no clubbing, cyanosis or edema, no pedal edema and no calf tenderness Psych Appearance: well kempt Mental Status: mental status grossly normal Attitude: cooperative Thought Content: normal and suicidality Judgment: judgment good Course Course Course Narrative: Patient was worked up in the emergency department with an ultrasound of the scrotum, which showed a varicocele, mild hydrocele, and bilateral small epididymal cyst. I have discussed with the patient that Urology follow-up may be helpful, particularly if the patient continues to be symptomatic. We have discussed home management of the symptoms, as well as the usual indications for return. Orders Ordered: ED Orders 11/21/18 20:24 US scrotum Stat Vital Signs Vital signs: Vital Signs - 8 hr 11/21/18 17:00 11/21/18 19:30 11/21/18 20:10 Temperature 97.6 F Pulse Rate 85 70 78 Respiratory Rate 18 16 19 Blood Pressure 125/73 Blood Pressure [Left Arm] 118/70 145/86 H Pulse Oximetry 95 98 96 MDM - Male Genitourinary Medical Records Attestation: I reviewed the patient's medical records. Lab Data Attestation: I reviewed the patient's lab results. Labs: Urine Dip Bedside Urine Glucose Negative Bedside Urine Bilirubin - Negative Bedside Urine Ketone - Negative Urine Specific [place] 1.020 Bedside Urine Occult Blood - Negative Bedside Urine pH 5.5 Bedside Urine Protein +/- 15 Bedside Urine Urobilinogen +/- 1mg Bedside Urine Nitrite - Negative Bedside Urine Leukocytes - Negative Esterase Imaging Data Scrotal ultrasound: Radiologist's impression: PROCEDURE: US SCROTUM INDICATIONS: pain L testicle TECHNIQUE: Real-time scanning was performed of the scrotum and testicles, with image documentation. Color and pulse Doppler interrogation was performed of both testicles. COMPARISON: None. FINDINGS: Right: Testicle is normal in size at 4.7 x 2.4 x 2.5 cm, and homogenous in echotexture. Epididymis is normal in overall size. Note is made of a 1 cm right epididymal head cyst. There is a moderate right-sided hydrocele. No right-sided varicocele. Overlying scrotal skin is normal in thickness. Left: Testicle is normal in size at 5.2 x 2.1 x 3.1 cm, and homogeneous in echotexture. Epididymis is normal in overall size. There is a 1.1 cm left epididymal head cyst. There is a moderate moderate left-sided hydrocele. There is a left-sided varicocele. Overlying scrotal skin is normal in thickness. Doppler: Color and pulse Doppler demonstrate normal and symmetric arterial flow in both testicles. IMPRESSION: Moderate left-sided varicocele. Moderate bilateral hydroceles. No focal testicular abnormality can be seen. Bilateral epididymal head cysts are incidentally noted. Dictated by: Sreekanth Clifton M.D. on 11/21/2018 at 21:20 Approved by: Sreekanth Clifton M.D. on 11/21/2018 at 21:22 Discharge Plan Departure Patient Disposition: Home Clinical Impression: Hydrocele in adult, Left varicocele Discharge Date/Time: 11/21/18 21:55 Instructions: DI for Varicocele, DI for Hydrocele-Adult Activity Restrictions/Additional Instructions: Your ultrasound shows normal testicles, but an area of swollen blood vessels and some mild fluid accumulation in your scrotum. You also have a small cyst associated with each of your epididymi. Any of the above, though benign conditions, could cause discomfort in your testicle. Varicoceles can be treated if they become large and constantly P. you may follow up with Urology to discuss the potential for this, if you continue to have issues. Prescriptions: No Action aspirin 81 mg Tablet,Delayed Release (Dr/Ec) 81 mg PO BEDTIME RF: 0 allopurinol 300 mg tablet 300 mg PO BEDTIME RF: 0 ibrutinib 420 mg tablet 420 mg PO BEDTIME RF: 0 omeprazole 20 MG capsule,delayed release(DR/EC) 20 mg PO BEDTIME RF: 0 Referrals: [facility] [Provider Group] Constantino Sanders MD [Primary Care Provider] -
[2018-11-21 21:54] VITALS: BP 124/74; PULSE 71; RESP 16; TEMP 36.8; O2SAT 95
== END 2018-11-21 21:55 | disposition home or self-care (01) ==
PROVIDERS: Emergency Provider Emergency Medicine; PCP Internal Medicine
DX: N43.3 Hydrocele, unspecified (principal); I86.1 Scrotal varices
CPT/HCPCS: 76870; 81003; 99282; 99284

== ENCOUNTER → 2019-06-30 11:09 | Outpatient (CLI) | payer MEDICARE, MEDICAID, SELFPAY ==
[2019-06-30 11:58] LABS: Add Manual Diff / Slide Review YES; Hematocrit 42.3 % (41-53); Hemoglobin 14.6 g/dL (13.5-17.5); Mean Corpuscular HGB Conc 34.4 % (30-36); Mean Corpuscular Hemoglobin 31.1 PG (26-34); Mean Corpuscular Volume 90.4 fL (80-100); Platelet Count 218 X10^3/uL (150-400); Red Blood Cell Count 4.68 X10^6/uL (4.5-5.9); Red Cell Distribution Width 12.8 % (11.6-14.8); White Blood Cell Count 28.5 X10^3/uL (4.5-11.0)
[2019-06-30 12:39] LABS: Total Cells Counted 100
[2019-06-30 12:40] LABS: Reactive Lymphocytes 2+; Smudge Cells 1+
[2019-06-30 12:41] LABS: RBC Morphology Normal Morphology
[2019-06-30 12:46] LABS: Neutrophils Absolute Manual 6840 /uL (3000-5900)
== END ==
PROVIDERS: PCP Internal Medicine; Referring Provider Internal Medicine Hematology & Oncology; Visit Provider Internal Medicine Hematology & Oncology
DX: C91.10 Chronic lymphocytic leukemia of B-cell type not having achieved remission (principal)
CPT/HCPCS: 36415; 85025

== ENCOUNTER → 2019-07-25 11:27 | Outpatient (CLI) | payer MEDICARE, MEDICAID, SELFPAY ==
[2019-07-25 13:40] LABS: Hematocrit 43.7 % (41-53); Hemoglobin 14.9 g/dL (13.5-17.5); Mean Corpuscular HGB Conc 34.1 % (30-36); Mean Corpuscular Hemoglobin 30.8 PG (26-34); Mean Corpuscular Volume 90.4 fL (80-100); Platelet Count 197 X10^3/uL (150-400); Red Blood Cell Count 4.83 X10^6/uL (4.5-5.9); Red Cell Distribution Width 12.8 % (11.6-14.8)
[2019-07-25 13:44] LABS: Add Manual Diff / Slide Review YES; White Blood Cell Count 36.7 X10^3/uL (4.5-11.0)
[2019-07-25 13:58] LABS: Neutrophils Absolute Manual 8074 /uL (3000-5900); Total Cells Counted 100
[2019-07-25 13:59] LABS: RBC Morphology Normal Morphology
== END ==
PROVIDERS: PCP Internal Medicine; Referring Provider Nurse Practitioner Adult Health; Visit Provider Nurse Practitioner Adult Health
DX: C91.10 Chronic lymphocytic leukemia of B-cell type not having achieved remission (principal)
CPT/HCPCS: 36415; 85025

== ENCOUNTER → 2019-08-07 07:47 | Outpatient (CLI) | payer MEDICARE, MEDICAID, SELFPAY ==
--- NOTE | 2019-08-07 | DI.CT.S_ITS ---
PROCEDURE: CT CHEST ABD PEL W CON INDICATIONS: RESTAGING TECHNIQUE: After the administration of oral and intravenous contrast, 5 mm thick sections acquired from the lung apices to the symphysis. 5 mm coronal and sagittal reformats were performed, with additional 7 mm coronal MIP reformats through the lungs. For radiation dose reduction, the following was used: automated exposure control, adjustment of mA and/or kV according to patient size. COMPARISON: [facility], CT, NECK/CHEST/ABD/PEL W CONTRAST, 11/17/2016, 14:27. [facility], CT, CHEST/ABD/PEL WITH CONTRAST, 07/11/2015, 12:54. FINDINGS: Image quality: Excellent. CHEST: Lungs and pleura: No acute airspace opacities. A rounded small nodule abutting the anterior border of the major fissure at the medial left upper lobe area has not changed, and contains internal calcification consistent with old granuloma. No pleural effusions or pneumothorax. Central and peripheral airways appear patent and normal in caliber. Mediastinum: Heart size is normal. No pericardial effusion. No mediastinal or hilar adenopathy by size criteria. Thoracic aorta and central pulmonary arteries are normal in size. Esophagus is normal in caliber. No hiatal hernia. Chest wall: No new axillary or supraclavicular adenopathy by size criteria and bilateral axillary adenopathy is slightly reduced in size with reference to the comparison CT from 11/17/16 enlarged nodes persists, shotty adenopathy also is seen but the overall appearance of adenopathy bilaterally in each axilla is slightly improved.. Thyroid gland appears normal. ABDOMEN: Solid organs: Liver is normal in size and enhancement. Mild adenopathy at the alexander hepatis is present, also slightly improved from the comparison study in November of 2016. No definite new adenopathy is found. Gallbladder appears normal. Biliary system is non dilated. Pancreas enhances normally. Spleen is normal in size and enhancement. No adrenal nodules. Kidneys demonstrate normal size and enhancement, without hydronephrosis. Peritoneum and bowel: Bowel loops demonstrate normal wall thickness and caliber. No free fluid or air. Nodes and vessels: No retroperitoneal or mesenteric adenopathy by size criteria. Aorta and inferior vena cava are normal in size. Miscellaneous: No ventral hernias. PELVIS: Genitourinary: Bladder wall thickness is normal. Miscellaneous: No inguinal hernias and external iliac node chain bilateral adenopathy within the pelvis and each groin and follows the pattern noted above of slight interval reduction in size of the lymph nodes involved.. Bones: No suspicious bony lesions. No vertebral body compression fractures. IMPRESSION: There is a uniform pattern through the chest abdomen and pelvis with persistence of mild to moderate adenopathy by with slight improvement by reduction in size of multiple enlarged lymph nodes, and no new area of adenopathy is seen. No visceral lymphoma is suspected. No marrow space lesion is found. Dictated by: Shawn Mondragon M.D. on 08/07/2019 at 10:12 Approved by: Shawn Mondragon M.D. on 08/07/2019 at 10:20
--- NOTE | 2019-08-07 | DI.CT.S_ITS ---
PROCEDURE: CT SOFT TISSUE NECK W CON INDICATIONS: RESTAGING TECHNIQUE: After the administration of intravenous contrast, 3.0 mm axial sections acquired from the sella to the aortic arch. Additional oblique axial 3.0 mm sections acquired through the pharynx. 3 mm thick coronal and sagittal reformats were generated. For radiation dose reduction, the following was used: automated exposure control. COMPARISON: [facility], CT, CT CHEST ABD PEL W CON, 08/07/2019, 8:30. [facility], CT, NECK/CHEST/ABD/PEL W CONTRAST, 05/29/2016, 10:02. [facility], CT, NECK/CHEST/ABD/PEL W CONTRAST, 11/17/2016, 14:27. FINDINGS: Image quality: Excellent. Lymph nodes: Enlargement of cervical neck lymph nodes can be seen. The largest solitary lymph node is seen within the right neck at level IIA measuring 14 x 12 mm in greatest axial dimension. There is a left submental lymph node seen measuring 13 x 10 mm. A right level III lymph node measures 15 x 7 mm, as on series 2 image 46. Compared to 11/17/16 examination, the overall lymph node enlargement is minimally greater. Vessels: Visualized vasculature appears patent. Neck spaces: The oropharynx, nasopharynx, and pharynx demonstrate no mucosal lesions. The vocal cords, false vocal cords, pyriform sinuses, epiglottis, vallecula, and tongue base all appear normal. Extramucosal spaces appear unremarkable. Glands: The parotid and submandibular glands appear normal. Thyroid gland demonstrates no significant CT abnormality. Miscellaneous: Visualized brain and orbits appear normal. Lung apices appear clear. Superficial soft tissues appear normal. Bones: No suspicious bony lesions. Visualized sinuses and mastoids appear unremarkable. IMPRESSION: Mildly enlarged cervical lymph nodes are seen, which are overall minimally larger than the most recent neck CT from 2017. Dictated by: Sreekanth Clifton M.D. on 08/07/2019 at 8:16 Approved by: Sreekanth Clifton M.D. on 08/07/2019 at 8:20
[2019-08-07 08:20] LABS: Estimated Glomerular Filt Rate > 60.0 mL/min (>60)
== END ==
PROVIDERS: PCP Internal Medicine; Referring Provider Internal Medicine Hematology & Oncology; Visit Provider Internal Medicine Hematology & Oncology
DX: C91.10 Chronic lymphocytic leukemia of B-cell type not having achieved remission (principal); R59.0 Localized enlarged lymph nodes
CPT/HCPCS: 36415; 70491; 71260; 74177; 82565; Q9967

== ENCOUNTER → 2020-08-01 09:41 | Outpatient (CLI) | payer MEDICARE, MEDICAID, SELFPAY ==
--- NOTE | 2020-08-23 16:18 | P.HOLT.S_ITS ---
Chemical Sprayer Report Referral & Results Date Patient Seen: 08/01/20 Requesting provider: Terrance Garcia Indication: Syncope Duration of monitoring (days): 3 Diary information: There was 1 patient triggered event and 1 patient diary entry. Both of these patient events were associated with sinus rhythm only Data: Minimum heart rate identified was 39 beats per minute at 05:52 on 08/03/2020 Maximum sinus heart rate was 112 beats per minute at 15:19 on 08/02/2020 Maximum overall heart rate was 174 beats per minute at 13:35 on 08/02/2020 sandra varela the only run of SVT which was 5 beats in duration Less than 1% of identified beats were ventricular or supraventricular ectopic in origin, which would classify them as rare. No pauses or atrial fibrillation identified on this study Impression: 3 day quality assurance monitor chassis demonstrating single very brief run of SVT and rare ventricular supraventricular ectopy No etiology for syncope identified on this study
== END ==
PROVIDERS: PCP Student in an Organized Health Care Education/Training Program; Referring Provider Student in an Organized Health Care Education/Training Program; Visit Provider Student in an Organized Health Care Education/Training Program
DX: R55 Syncope and collapse (principal)
CPT/HCPCS: 93242; 93244

== ENCOUNTER → 2020-09-28 11:26 | Outpatient (CLI) | payer MEDICARE, MEDICAID, SELFPAY ==
[2020-09-28 13:23] LABS: COVID19 -Nasal RAPID Negative (Negative)
== END ==
PROVIDERS: PCP Student in an Organized Health Care Education/Training Program; Visit Provider Physician Assistant
DX: R09.81 Nasal congestion (principal); R68.83 Chills (without fever); Z20.822 Contact with and (suspected) exposure to COVID-19
CPT/HCPCS: 87635

== ENCOUNTER → 2024-11-27 15:58 | Outpatient (CLI) | payer MEDICARE, MEDICAID, SELFPAY ==
--- NOTE | 2024-11-27 16:29 | DI.MRI.S_ITS ---
PROCEDURE: MR KNEE RT WO CON INDICATIONS: Chronic knee pain TECHNIQUE: Noncontrast sagittal PD fast spin echo and T2 fast spin echo with fat saturation, sagittal 3-D FLASH with fat saturation; coronal T1 spin echo and PD fast spin echo with fat saturation, and axial PD fast spin echo with fat saturation through the knee. COMPARISON: [facility], CR, XR KNEE 3 VIEWS RIGHT, 11/12/2024, 13:16. FINDINGS: Image quality: Excellent. Menisci: Medial extrusion of the medial meniscus is present. There is linear oblique and amorphous high signal intensity within the inner, middle, and peripheral thirds of the medial meniscal body, demonstrating inferior articular surface extension, indicating complex tearing. There is r moderately displaced vertical tearing of the middle 3rd of the posterior horn medial meniscus. Lateral meniscus is intact. Cruciate ligaments: The anterior and posterior cruciate ligaments appear intact. Medial structures: The medial collateral ligament appears intact. Visualized portions of the pes anserinus tendons appear normal. No abnormal bursal fluid. Lateral structures: The lateral collateral ligament demonstrates mild T2 signal elevation at the femoral origin. The long and short heads of the biceps femoris tendon appear intact. The popliteus tendon appears normal. Iliotibial band appears normal. Anterior structures: The quadriceps and patellar tendons appear intact. Patellar alignment is normal. No femoral trochlear dysplasia or ventral trochlear prominence. No edema in the infrapatellar fat pad. Bones and cartilage: No bone marrow contusions or fractures. Moderate articular cartilage loss diffusely overlies the weight-bearing aspects of the medial femoral condyle and medial tibial plateau. Articular cartilage fibrillation overlies the lateral patellar facet. Joint space: There is a small knee joint effusion. No Betts's cyst. Normal appearing synovial plicae are incidentally noted. IMPRESSION: 1. Complex tearing of the medial meniscus. 2. Medial and patellofemoral compartment articular cartilage loss. 3. Small knee joint effusion. 4. Partial-thickness lateral collateral ligament tear. Dictated by: Lul Ireland M.D. on 11/28/2024 at 11:26 Approved by: Lul Ireland M.D. on 11/28/2024 at 11:29
== END ==
LOC: MRI 16:01
PROVIDERS: PCP Physician Assistant; Referring Provider Orthopaedic Surgery; Visit Provider Orthopaedic Surgery
DX: S83.231A Complex tear of medial meniscus, current injury, right knee, initial encounter (principal); S83.421A Sprain of lateral collateral ligament of right knee, initial encounter; M25.461 Effusion, right knee; M25.561 Pain in right knee; G89.29 Other chronic pain
CPT/HCPCS: 73721